=== PATIENT | male | born 1990 | race Caucasian/White ===

== ENCOUNTER 2016-07-10 16:49 | Emergency (ER) | payer OTHER ==
[~2016-07-10] VITALS: Ht 190.5 cm; Wt 97.7 kg
[2016-07-10 16:52] VITALS: BP 114/65; PULSE 71; RESP 16; O2SAT 98
[2016-07-10] MEDS ORDERED: predniSONE 20 mg Tablet PO ONE (18:30)
[2016-07-10] MEDS ORDERED: PRE20 PO (18:33)
--- NOTE | 2016-07-10 18:33 | ED.REPORT ---
HPI-Back Pain Under 40 Date of Service July 10, 2016 ED Provider: Addy Bishop PA-C Marco is an otherwise healthy 25-year-old male presenting with a complaint of right-sided lower back pain. Patient states it began approximately 3 weeks ago. States he was working on a noemí project and noticed pain at the end of the day. He states the pain has been relatively steady since then it radiates down his right leg. He describes as stabbing. Admits a remote history of a sports injury to his lower back. Admits some tingling in his right leg as well as pain radiating to his foot. Denies numbness, weakness in lower extremity. Denies fever, DM, HIV, organ transplant, immunosuppression, recent surgery, recent infection, history of back surgery, surgical implants and IV drug use. Denies bowel/bladder dysfunction and saddle anesthesia. Denies dysuria, hematuria. Nursing Notes Stated Complaint: LOWER BACK PAIN Chief Complaint: Back Pain or Injury Nursing Notes Reviewed: Yes Allergies: Coded Allergies: No Known Allergies (Unverified , 07/10/16) Scheduled Prednisone (PredniSONE) 20 Mg Tablet 40 MG PO DAILY General Time Seen by MD: 18:19 Chief Complaint Back pain Sudden in Onset?: No Past Medical History Past Medical History Denies Review of Systems Negative unless stated otherwise in history of present illness Physical Exam General: Well appearing, well developed, well nourished, no acute distress. Head: Atraumatic, normocephalic. Eyes: No scleral icterus or injection. No discharge. Vision grossly intact. ENT: Voice clear, hearing grossly intact. Respiratory: No respiratory distress, no increased work of breathing. Speaks in complete sentences. Skin: Warm and dry. Back: Normal to inspection, negative midline spinous process tenderness, negative CVA tenderness Neurological: Normal gait, toe walk, heel walk, Romberg. Patellar and Achilles reflexes present and equal B/L. Sensation to light touch intact at medial leg, dorsal foot and lateral foot B/L. negative seated straight leg raise, negative seated cross straight leg raise. Psychological: alert and oriented. Speech appropriate, linear and logical. Behavior appropriate. Initial Vital Signs Vital Signs (First) Date Time Temp Pulse Resp B/P Pulse Ox O2 Delivery O2 Flow Rate FiO2 07/10/16 16:52 37.2 71 16 114/65 98 Room Air Initial VS: Vital signs normal Re-Eval/Medical Decision Med Decision/Clinical Course Otherwise healthy 25-year-old with a history of low back pain presents with a chief complaint of same. I debated approximate 3 weeks ago while working on a roof. No specific injury. Complains of radiation to right leg. Denies bowel/ bladder dysfunction, saddle anesthesia. Physical examination is benign with a nontender back, normal neurological examination. Pain is elicited with a seated straight leg raise, no radiation. Back pain is without red flag symptoms for acute disc herniation, cauda equina, infection, hematoma, trauma, pyelonephritis, nephrolithiasis, AAA, cancer. I believe this is musculoskeletal back pain. Provided ketorolac, acetaminophen, prednisone. Safe to be discharged home. Prescribed course of prednisone. Advised regarding [id number] analgesia, rest, primary care follow-up, emergent return precautions. Patient verbalizes understanding of and consent to the plan. Discharge & Departure Impression: Primary Impression: Low back pain Chronicity: acute Back pain laterality: right Sciatica presence: with sciatica Sciatica laterality: sciatica of right side Qualified Code: M54.41 - Lumbago with sciatica, right side Disposition: Home All VS Reviewed: Yes Condition: Stable Patient Instructions: Acute Low Back Pain (ED) Additional Instructions: Evaluation in the emergency department for lower back pain. History and physical are reassuring for emergent neurological condition such as epidural abscess or cauda equina syndrome. History does not suggest that this is likely to be a spinal fracture. Your neurological examination is normal, indicating there is no damage to the nerves in your back. I see no indication to perform imaging tests at this time. Treatment is largely symptomatic. Rest is important, especially for the next couple of days, but avoid total bed rest. Reasonable activity as tolerated is the best. Apply ice to the affected area 4 times a day for 20 minutes over the next 24 hours. After that you will probably find warm compresses most helpful. The pain is best treated with 500 mg of naproxen (Aleve) every 12 hours, or 1000 mg of acetaminophen (Tylenol) every 6 hours. These drugs can be taken at the same time for more severe pain. I will also give a prescription for prednisone 40 mg to be taken once a day for the next 3 days, starting tomorrow. you received the first dose here in the emergency department. Most of all be patient: 70-90% of people with injuries presenting like yours will resolve within 7 weeks, even without treatment. Follow-up with your primary care provider in the next week or two to be sure your recovery is progressing as expected. Return the emergency department for new or worsening symptoms such as loss of bowel/bladder control, numbness between your legs, new weakness/numbness or high fever. [facility]errals: [facility] Provider for [facility]: Abdifatah Price MD, Seth PA-C July 10, 2016 18:32
== END 2016-07-10 19:00 | disposition home or self-care (01) ==
LOC: SED 16:49
DX: M54.41 Lumbago with sciatica, right side (principal); Z87.828 Personal history of other (healed) physical injury and trauma
CPT/HCPCS: 96372; 99283; J1885